=== PATIENT | male | born 1995 | race Caucasian/White ===

== ENCOUNTER 2022-06-21 18:02 | Emergency (ER) | payer SELFPAY ==
[2022-06-21] VITALS (12 sets, daily range): BP systolic 144–153; BP diastolic 86–97; PULSE 114–152; RESP 17–29; TEMP 37.3; O2SAT 96–98
--- NOTE | 2022-06-21 18:15 | PC.NURSE ---
vorb from GEOR[place]ES Núñez NS 1L X1 BOLUS ATIVAN 2MG IVP X1
[2022-06-21] MEDS: SODIUM CHLORIDE 0.9% IV 1,000 ML 999 ML (18:22)
[2022-06-21] MEDS: LORazepam INJ (*CRX) 2 MG/ML VIAL (18:22)
--- NOTE | 2022-06-21 18:23 | ED.GENADULT ---
HPI - General Adult General Chief complaint: Environmental Exposure Stated complaint: heat exposure Time Seen by Provider: 06/21/22 18:21 History of Present Illness HPI narrative: 27-year-old male with a history of anxiety presents the emergency room for evaluation panic attack. 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 This prompted him to go fishing all day today. Patient states that he was shirtless and consumes several alcoholic beverages. On presentation, patient is hyperventilating with noted hand and foot contractions. Related Data Allergies Allergy/AdvReac Type Severity Reaction Status Date / Time No Known Allergies Allergy Verified 06/21/22 18:04 Review of Systems Review of Systems: CONSTITUTIONAL: Denies fever, chills, or sweats. EYES: Denies visual changes, redness, or discharge. ENT: Denies rhinorrhea, congestion, sore throat, or otalgia. CARDIOVASCULAR: Denies chest pain, palpitations, or edema. RESPIRATORY: Reports dyspnea GASTROINTESTINAL: Denies abdominal pain, nausea, vomiting, or diarrhea. GENITOURINARY: Denies dysuria or hematuria. SKIN: Denies rash or itching. MUSCULOSKELETAL: Reports pain in his hands and feet NEUROLOGIC: Denies headache, numbness, dizziness, or weakness. PSYCHIATRIC: Reports anxiety. [facility] Past Medical History Medical History (Updated 06/21/22 @ 20:26 by Jaciel Núñez, ADRIENNE) Anxiety Exam Narrative: GENERAL: Well-appearing, well-nourished, no physical limitations, and in psychological acute distress. HEAD: Normocephalic, atraumatic. EYES: Conjunctivae normal, PERRLA and EOMI. ENT: External nose normal, Nares clear, no rhinorrhea or epistaxis. Mucous membranes moist. Oropharynx without tonsillar hypertrophy exudate or other lesions. External ears normal, bilateral TMs normal bilaterally NECK: Supple. No adenopathy or masses. CHEST: Clear to auscultation. No respiratory distress. No wheezes rales or rhonchi. No tenderness. HEART: Tachycardia rate and regular rhythm. No murmur heard. Normal peripheral pulses. ABDOMEN: Soft, nontender, nondistended, normal active bowel sounds. BACK: No CVA tenderness; No cervical/thoracic/lumbar tenderness, step-offs, bony abnormality; FROM EXTREMITIES: Normal range of motion. No edema. No clubbing or cyanosis. Contractures noted to hands and feet SKIN: Warm, dry, no rash. Generalized erythema to his upper torso, neck and face. NEURO: No focal deficits. Alert and oriented x3. MAEW. CN's II-XI intact bilaterally, normal gait PSYCH: Cooperative. Normal mood and affect. Course Vital Signs Vital signs: Vital Signs Temperature 37.3 C 06/21/22 18:05 Pulse Rate 143 H 06/21/22 18:05 Respiratory Rate 18 06/21/22 18:05 Blood Pressure 153/97 H 06/21/22 18:05 Pulse Oximetry 97 06/21/22 18:05 Temperature 37.3 C 06/21/22 18:05 Pulse Rate 114 H 06/21/22 21:30 Respiratory Rate 18 06/21/22 21:30 Blood Pressure 144/92 H 06/21/22 20:15 Pulse Oximetry 98 06/21/22 21:30 Medical Decision Making Vital Signs Vital Signs: Vital Signs Temperature 37.3 C 06/21/22 18:05 Pulse Rate 143 H 06/21/22 18:05 Respiratory Rate 18 06/21/22 18:05 Blood Pressure 153/97 H 06/21/22 18:05 Pulse Oximetry 97 06/21/22 18:05 Temperature 37.3 C 06/21/22 18:05 Pulse Rate 114 H 06/21/22 21:30 Respiratory Rate 18 06/21/22 21:30 Blood Pressure 144/92 H 06/21/22 20:15 Pulse Oximetry 98 06/21/22 21:30 Lab Data Labs: Lab Results 06/21/22 06/21/22 Range/Units 19:20 20:15 Urine Opiates Screen Negative (Negative) Urine Methadone Screen Negative (Negative) Ur Barbiturates Screen Negative (Negative) Ur Phencyclidine Scrn Negative (Negative) Ur Amphetamine Screen Positive A (Negative) U Benzodiazepines Scrn Negative (Negative) Urine Cocaine Screen Negative (Negative) U Cannabinoids Screen
[2022-06-21 19:54] LABS: Ethanol < 10 mg/dL (<10)
--- NOTE | 2022-06-21 20:07 | ECG_ITS ---
Measurements Intervals [place] Rate: 127 P: 71 [place]: 160 QRS: 73 QRSD: 84 T: 56 QT: 300 QTc: 437 Interpretive Statements SINUS TACHYCARDIA ABNORMAL ECG Electronically Signed On 06-21-2022 20:53:10 CDT by Jorge Hurtado D.O.
--- NOTE | 2022-06-21 20:10 | PC.NURSE ---
provider stated that the pt can no leave until his ride comes to pick him, d/t Ativan dose.
[2022-06-21 20:41] LABS: Barbiturate Screen Urine Negative (Negative); Benzodiazepines Screen Urine Negative (Negative)
[2022-06-21 20:43] LABS: Cannabinoid Screen Urine Positive (Negative); Cocaine Screen Urine Negative (Negative); Methadone Screen Urine Negative (Negative); Opiate Screen Urine Negative (Negative); Phencyclidine Screen Urine Negative (Negative)
[2022-06-21 21:07] LABS: Amphetamine Screen Urine Positive (Negative)
== END 2022-06-21 22:10 | disposition home or self-care (01) ==
PROVIDERS: Emergency Provider Nurse Practitioner Family
DX: F41.0 Panic disorder [episodic paroxysmal anxiety] (principal); R00.0 Tachycardia, unspecified
CPT/HCPCS: 36415; 80307; 93005; 96361; 96374; 99284; J2060; J7030